=== PATIENT | female | born 1940 | race Two or more races ===

== ENCOUNTER 2016-12-25 13:38 | Emergency (ER) | payer MEDICARE, OTHER ==
--- NOTE | ~2016-12-25 | CR157 ---
[facility] A Service of [facility] & [facility] RADIOLOGY TEXT RESULTS PATIENT: LUDY WORRELL LOCATION: CFTX : 42 UNIT #: [id number] AGE: [address]: Delfino De Luna SEX: F ORDER DR: [id number] [facility] [address] [place], [place] [address] [id number] E MR#: [id number] Acc #: [id number] NAME: LUDY WORRELL : 1940 SEX: F STUDY DATE/TIME: 12/25/2016 15:29 UNIT: [facility] ROOM: STUDY DESCRIPTION: CR Humerus Min 2 View Rt Attending Physician: Delfino De Luna Ordering Physician: Delfino De Luna Primary Care Physician: Generic Doctor Not In System MEDICAL IMAGING REPORT This report is preliminary unless electronic signature is present EXAM Right humerus 2 views HISTORY Pain after fall today. FINDINGS AP and lateral views of the right humerus demonstrate a transverse fracture through the surgical neck of the humerus with approximately 1 cm separation of the fracture fragments and approximately 30 degrees medial angulation of the fracture apex. No dislocation. Generalized demineralization. Mild degenerative changes in the right shoulder. Dictated by... Cornel Bro M.D. THIS IS AN ELECTRONICALLY VERIFIED REPORT Cornel Bro M.D. at 12/26/2016 11:29 PM SADAF/mercedez TD: 12/26/2016 02:22 JOB #: [id number] MEDICAL IMAGING REPORT Page 1 of 1 COPY
== END 2016-12-25 16:56 | disposition home or self-care (01) ==
LOC: CED 13:38 → CFTX 13:38
DX: S42.211A Unspecified displaced fracture of surgical neck of right humerus, initial encounter for closed fracture (principal); W10.9XXA Fall (on) (from) unspecified stairs and steps, initial encounter; Y92.009 Unspecified place in unspecified non-institutional (private) residence as the place of occurrence of the external cause
CPT/HCPCS: 73060; 99283